=== PATIENT | female | born 1960 | race Caucasian/White ===

== ENCOUNTER → 2017-04-20 | Outpatient (CLI) | payer OTHER ==
[~2017-04-20] VITALS: Ht 170.2 cm; Wt 45.4 kg
[~2017-04-20] MED LIST: ACIDOPHILUS1 EAC2 PO; B COMPLEX1 EACH PO; CENTRUM SILVER1 EAC4 PO; CIMZIA400 MG/2 M SQ; CO Q-10100 MG PO; FISH OIL 1,001000 M2 PO; OMEPRAZOLE 20 M20 M1 PO; RIZATRIPTAN10 M1 PO; SULFASALAZINE500 M5 PO; VITAMIN D-32000 UNIT PO; VITAMIN E400 UNIT PO
--- NOTE | ~2017-04-20 | S ---
[facility] [place] [address] SURGICAL PATH RPT PROCEDURE Name: TITO DELA CRUZ Room #: REG [facility]#: [id number] Admission: 04/20/17 Date of : 62 Discharge: Report #: [id number] Path Case #: [id number] PATHOLOGY REPORT COLLECTION DATE: 04/20/2017 RECEIVED DATE: 04/20/2017 SUBMITTING PHYS: Dr. aPscual Pena OTHER PHYS: SPECIMEN(S) RECEIVED: A.Gastric bx * * * * * * * * * * * * FINAL DIAGNOSIS: Gastric mucosa, gastric, endoscopic biopsy: - Mild to moderate active gastritis. - Negative for intestinal metaplasia or atrophy. - Negative for Helicobacter pylori (please see comment). (IUV:vickie; 04/22/2017) COMMENT: Helicobacter pylori immunohistochemical stain performed on block A1: Negative. An intensive search for Helicobacter pylori-like organisms is negative. Absence of such organisms does not entirely exclude the possibility and may be due to sampling bias or prior treatment. Other possible etiologies may include chemical gastritis, autoimmune gastritis, gastritis associated with inflammatory bowel disease. Please correlate with clinical, endoscopic, and microbiological studies if clinically indicated. (IUV:vickie; 04/22/2017) PATHOLOGIST: Rochelle Mancia M.D. REPORT ELECTRONICALLY SIGNED BY: Rochelle Mancia M.D. DATE/TIME: 04/22/2017 16:36 * * * * * * * * * * * * GROSS PATHOLOGY: Received in formalin labeled "Tito Dela Cruz S, gastric BX," are 4 segments of ordaz soft tissue measuring 1.5 x 0.2 x 0.2 cm in aggregate dimensions and ranging from 0.2 to 0.5 cm in maximum dimension. The specimen is submitted entirely in cassette A1. (SAUMYA; 04/21/2017) CLINICAL HISTORY: [facility] [place] [address] SURGICAL PATH RPT PROCEDURE Name: TITO DELA CRUZ Room #: REG [facility]#: [id number] Admission: 04/20/17 Date of : 62 Discharge: Report #: [id number] Path Case #: [id number] History of ulcers INITIAL CPT CODE(S): A; 12791, 43700 Professional services performed by [facility] at [address] , [place] [address] Technical services performed by [facility] at [address] [place] [address], [place] [address]. [facility] [address] [place] [address] PHONE: [phone] DIRECTOR: Jac Coelho M.D. * * * END OF REPORT * * *
== END | disposition home or self-care (01) ==
LOC: GI 07:05
DX: K22.2 Esophageal obstruction (principal); K29.70 Gastritis, unspecified, without bleeding; K57.10 Diverticulosis of small intestine without perforation or abscess without bleeding; K26.9 Duodenal ulcer, unspecified as acute or chronic, without hemorrhage or perforation; K44.9 Diaphragmatic hernia without obstruction or gangrene; G43.909 Migraine, unspecified, not intractable, without status migrainosus; M19.90 Unspecified osteoarthritis, unspecified site; Z98.890 Other specified postprocedural states; Z85.828 Personal history of other malignant neoplasm of skin; Z88.8 Allergy status to other drugs, medicaments and biological substances
CPT/HCPCS: 62110; 62900

== ENCOUNTER → 2017-12-28 | Outpatient (CLI) | payer OTHER ==
[~2017-12-28] VITALS: Ht 170.2 cm; Wt 47.2 kg
[~2017-12-28] MED LIST changes: +PEPCID20 MG PO; +VITAMIN D31000 UNI2 PO
--- NOTE | ~2017-12-28 | P ---
[facility] [place] [address] PROCEDURE REPORT Name: TITO DELA CRUZ Room #: REG [facility].#: [id number] Admission: 12/28/17 Attend Phys: Pascual Younger Discharge: Date of : 62 Report #: [id number] THIS REPORT FOR: //name// CC: Pascual ALEXANDER DATE OF SERVICE: 12/28/2017 PROCEDURE PERFORMED: Upper endoscopy with esophageal dilation. HISTORY OF PRESENT ILLNESS: The patient is a 57-year-old female with a history of recurrent dysphagia. She has had previous upper endoscopies with dilations in the past and a known Schatzki's ring. She also had a previous duodenal ulcer when the patient was taking NSAIDs in the past. She no longer takes NSAIDs on a regular basis. PROCEDURE: The risks and benefits of the procedure were explained to the patient, those risks including, but not limited to bleeding, perforation, and the risk of sedation. She understood these risks and gave informed consent. Sedation was given using propofol per anesthesia. Next, using a standard Olympus upper endoscope, the scope was placed in the patient's mouth and advanced under direct vision through the esophagus, stomach and into the second portion of the duodenum. The larynx was normal in appearance. There was a mild narrowing in the upper esophagus. The mid esophagus was normal. A mild Schatzki's ring was also noted in the distal esophagus. Overall, the gastric mucosa was normal. The pylorus was normal and patent. The duodenal bulb, first and second portion were all normal. No evidence of ulcerations. The scope was then brought back up into the patient's stomach and a Savary guidewire was inserted through the scope, leaving the guidewire in place as the scope was then withdrawn. Next, a 51-[place] Savary dilation of the esophagus was then performed without difficulty. The wire and dilator were removed. The scope was reintroduced back into the patient's stomach. There was evidence of a mucosal tear in the upper esophagus, no evidence of bleeding, otherwise negative. The scope was then withdrawn and the procedure terminated. The patient tolerated the procedure well. IMPRESSION: 1. Mild narrowing in the upper esophagus. 2. Mild Schatzki's ring. 3. Otherwise, normal upper endoscopy. RECOMMENDATIONS: Observe the patient post dilation. [address] [address] PROCEDURE REPORT Name: BRITTANY DELA CRUZN Taj Room #: REG [facility]an#: [id number] Admission: 12/28/17 Attend Phys: Pascual Younger Discharge: Date of : 62 Report #: [id number] Thank you for allowing me to participate in her care. <ELECTRONICALLY SIGNED> By: Pascual Pena MD 12/28/17 1247 0920 1002 Pascual Pena MD /nt
== END | disposition home or self-care (01) ==
LOC: GI 08:11
DX: K22.2 Esophageal obstruction (principal); G43.909 Migraine, unspecified, not intractable, without status migrainosus; K21.9 Gastro-esophageal reflux disease without esophagitis; M19.90 Unspecified osteoarthritis, unspecified site; F41.8 Other specified anxiety disorders; Z88.8 Allergy status to other drugs, medicaments and biological substances; Z85.828 Personal history of other malignant neoplasm of skin; Z98.890 Other specified postprocedural states; Z79.899 Other long term (current) drug therapy
CPT/HCPCS: 62110; 62900